=== PATIENT | male | born 2000 | race Caucasian/White ===

== ENCOUNTER 2018-10-03 23:42 | Emergency (ER) | payer OTHER ==
[~2018-10-03] VITALS: Ht 180.3 cm; Wt 90.9 kg
[2018-10-04] MEDS ORDERED: NS 1,000 ML IV ONE (00:15)
[2018-10-04 00:44] LABS: BASO # 0.1 10^3/uL (0.0-0.2); BASO % 1.2 % (0.0-1.0); EOS # 0.2 10^3/uL (0.0-0.50); EOS % 2.5 % (0.0-3.0); HEMATOCRIT 41.4 % (42.0-52.0); HEMOGLOBIN 14.2 g/dl (13.5-17.5); LYMPH # 1.7 10^3/uL (1.5-6.5); LYMPH % 25.6 % (24.0-44.0); MEAN CORPUSCULAR HEMOGLOBIN 29.8 pg (27.0-33.0); MEAN CORPUSCULAR HGB CONC 34.3 g/dl (32.0-36.5); MONO # 0.6 10^3/uL (0.0-0.8); MONO % 8.5 % (0.0-5.0); NEUTROPHILS % 61.7 % (36.0-66.0); PLATELET COUNT, AUTOMATED 315 10^3/uL (150-450); RED BLOOD COUNT 4.76 10^6/uL (4.30-6.10); WHITE BLOOD COUNT 6.5 10^3/uL (4.0-10.0)
[2018-10-04 01:02] LABS: BLOOD UREA NITROGEN 15 MG/DL (7-18); CARBON DIOXIDE LEVEL 27 MEQ/L (21-32); CHLORIDE LEVEL 106 MEQ/L (98-107); CREATININE FOR GFR 1.26 MG/DL (0.70-1.30); GLUCOSE, FASTING 79 MG/DL (70-100); POTASSIUM SERUM 3.9 MEQ/L (3.5-5.1); SODIUM LEVEL 141 MEQ/L (136-145)
[2018-10-04] MEDS ORDERED: MORPHINE 4 MG/ML 1ML VIAL/SYRINGE (J2270) IV ONE (01:45)
[2018-10-04] MEDS ORDERED: ONDANSETRON 4MG/2ML VIAL (J2405) IV ONE (01:45)
--- NOTE | 2018-10-04 02:35 | REPVR ---
EXAM: US Abdomen Limited, Right Upper Quadrant EXAM DATE/TIME: 10/04/2018 2:01 AM CLINICAL HISTORY: 18 years old, male; Pain; Abdominal pain; Epigastric; Additional info: Ruq pain, post appy 1 mo TECHNIQUE: Real-time ultrasound of the abdomen with image documentation. Examination was focused on the right upper quadrant. COMPARISON: No relevant prior studies available. FINDINGS: Liver: Normal. No masses. Gallbladder: Normal. No gallstones. There is no gallbladder wall thickening. Common bile duct: Common bile duct is normal measuring 2.5 mm. Pancreas: Pancreas is not seen secondary to overlying bowel gas shadow. Right kidney: Right kidney is unremarkable measuring 10.3 mm. IMPRESSION: Pancreas is not seen secondary to overlying bowel gas shadow. Otherwise unremarkable exam. Electronically signed by: Piper Dunlap On 10/04/2018 02:35:23 AM
[2018-10-04] MEDS ORDERED: ZOFR4TAB16 PO (02:54)
[2018-10-04 02:59] VITALS: BP 123/71
== END 2018-10-04 03:09 | disposition home or self-care (01) ==
LOC: M ED 23:42
DX: R10.11 Right upper quadrant pain (principal); G89.18 Other acute postprocedural pain; Z88.1 Allergy status to other antibiotic agents; Z88.2 Allergy status to sulfonamides
CPT/HCPCS: 76705; 80048; 85025; 96374; 96375; 99284; J2270; J2405